=== PATIENT | female | born 1990 ===

== ENCOUNTER 2019-10-27 05:54 | Inpatient (IN) | payer OTHER ==
[2019-10-27] MEDS ORDERED: LACTATED RINGERS 1,000 ML ONE (06:57)
[2019-10-27] MEDS ORDERED: OXYTOCIN 20 UNIT/1000ML DRIP 40,000 MILLIUNITS/2,000 ML BAG IV ONE (06:58)
[2019-10-27] MEDS ORDERED: TERBUTALINE 1 MG/1 ML INJ SUB-Q PRN (07:01)
[2019-10-27] MEDS ORDERED: ePHEDrine SULFATE 50 MG/1 ML INJ IV PRN (07:01)
[2019-10-27] MEDS ORDERED: BUTORPHANOL 2 MG/1 ML INJ IV PRN (07:01)
[2019-10-27] MEDS ORDERED: TERBUTALINE 1 MG/1 ML INJ IVP PRN (07:01)
[2019-10-27] MEDS ORDERED: MINERAL OIL 30 ML ORAL LIQD PO PRN ×2 (07:01→08:01)
[2019-10-27] MEDS ORDERED: fentaNYL 100 MCG/2 ML INJ IV PRN (07:01)
[2019-10-27] MEDS ORDERED: ONDANSETRON 4 MG/2 ML INJ IV PRN (07:01)
[2019-10-27] MEDS ORDERED: LIDOCAINE (2%) 20 MG/1 ML VIAL 20 ML MDV INFILTRATI ONE (07:01)
[2019-10-27 07:23] LABS: Hematocrit 35.1 % (30.3-42.9); Hemoglobin 11.7 gm/dl (10.1-14.3); Mean Corpuscular HGB Conc 33 % (30-34); Mean Corpuscular Volume 81 fl (79-97); Platelet Count 252 K/mm3 (140-440); Red Blood Count 4.36 M/mm3 (3.65-5.03); Red Cell Distribution Width 14.4 % (13.2-15.2)
[2019-10-27] MEDS ORDERED: OXYTOCIN 10 UNIT/1 ML INJ IM ONE (07:46)
[2019-10-27] MEDS ORDERED: LACTATED RINGERS 1,000 ML IV SCH ×2 (08:00→09:00)
[2019-10-27] MEDS ORDERED: OXYTOCIN 20 UNIT/1000ML DRIP 20 UNITS/1,000 ML BAG IV SCH (08:00)
[2019-10-27] MEDS ORDERED: HYDROcodone/ACETAMINOPHEN 5-325 MG TAB PO PRN (08:04)
[2019-10-27] MEDS ORDERED: PROMETHAZINE 25 MG TAB PO PRN (08:04)
[2019-10-27] MEDS ORDERED: WITCH HAZEL/ GLYCERIN PAD TP PRN (08:04)
[2019-10-27] MEDS ORDERED: diphenhydrAMINE 25 MG CAP PO PRN (08:04)
[2019-10-27] MEDS ORDERED: LANOLIN/ZINC/DIMETHICONE (LANSINOH) 7 GM TP PRN (08:04)
--- NOTE | 2019-10-27 08:14 | History and Physical Report ---
History of Present Illness Date of examination: 10/27/19 Date of admission: 10/27/19 06:20 Chief complaint: Intense Labor Pains History of present illness: Early entry to care at [facility], course complicated by Anemia and Poor Weight Gain. Past History Past Medical History: no pertinent history Past Surgical History: no surgical history Family/Genetic History: none Social history: no significant social history, - Obstetrical History Expected Date of Delivery: 10/22/19 Actual Gestation: 40 Week(s) 5 Day(s) : 2 Para: 1 Hx # Term Pregnancies: 1 Number of Living Children: 1 #1 Gender: Male year: Birthweight: 3.629 kg Method of Delivery: Vaginal Gestational age at delivery: 40 Complications: none Medications and Allergies Allergies Allergy/AdvReac Type Severity Reaction Status Date / Time No Known Allergies Allergy Unverified 10/27/19 06:59 Active Meds: Active Medications Acetaminophen/Hydrocodone Bitart ([place] 5/325) 2 each PO Q6H PRN PRN Reason: Pain, Moderate (4-6) Butorphanol Tartrate (Stadol) 2 mg IV Q2H PRN PRN Reason: Pain , Severe (7-10) Diphenhydramine HCl (Benadryl) 25 mg PO Q6H PRN PRN Reason: Itching Ephedrine Sulfate (Ephedrine Sulfate) 10 mg IV Q2M PRN PRN Reason: Hypotension Fentanyl (Sublimaze) 100 mcg IV Q2H PRN PRN Reason: Labor Pain Oxytocin/Sodium Chloride (Pitocin/Ns 20 Unit/1000ml Drip) 20 units in 1,000 mls @ 125 mls/hr IV DIRECT ASIA Lactated Ringer's (Lactated Ringers) 1,000 mls @ 125 mls/hr IV DIRECT ASIA Lactated Ringer's (Lactated Ringers) 1,000 mls @ 125 mls/hr IV DIRECT ASIA Ibuprofen (Ibuprofen) 600 mg PO Q6H ASIA Mineral Oil (Mineral Oil) 30 ml PO QHS PRN PRN Reason: Constipation Last Admin: 10/27/19 07:20 Dose: 30 ml Documented by: Mineral Oil (Mineral Oil) 30 ml PO QHS PRN PRN Reason: Constipation Multi-Ingredient Ointment (Lansinoh) 1 applic TP PRN PRN PRN Reason: Sore Nipples Ondansetron HCl (Zofran) 4 mg IV Q8H PRN PRN Reason: Nausea And Vomiting Promethazine HCl (Phenergan) 25 mg PO Q6H PRN PRN Reason: Nausea And Vomiting Sodium Chloride (Sodium Chloride Flush Syringe 10 Ml) 10 ml IV PRN NR Terbutaline Sulfate (Brethine) 0.25 mg SUB-Q ONCE PRN PRN Reason: Hyperstimulation/Hypertonicity Terbutaline Sulfate (Brethine) 0.25 mg IVP ONCE PRN PRN Reason: Hyperstimulation/Hypertonicity Witch Lesia/Glycerin (Tucks Pad) 1 each TP PRN PRN PRN Reason: Hemorrhoid/cleansing/soothing Review of Systems All systems: negative - Vital Signs Vital signs: Vital Signs Pulse BP 87 102/69 10/27/19 06:58 10/27/19 06:58 Temp Pulse Resp BP Pulse Ox 82 108/52 10/27/19 07:41 10/27/19 07:41 - Physical Exam Breasts: Positive: normal Cardiovascular: Regular rate Lungs: Positive: Clear to auscultation, Normal air movement Abdomen: Positive: normal appearance, soft, normal bowel sounds Genitourinary (Female): Positive: normal external genitalia, normal perenium Vagina: Positive: normal moisture Uterus: Positive: enlarged Anus/Rectum: Positive: normal perianal skin - Obstetrical FHR: category 1 Uterine Contraction Monitor Mode: External Cervical Dilatation: 9 Cervical Effacement Percentage: 90 station: -2 Uterine Contraction Pattern: Regular Uterine Tone Measurement Phase: Resting Uterine Contraction Intensity: Moderate Results Result Diagrams: 10/27/19 06:45 Abnormal lab results 10/27/19 Range/Units 06:45 WBC 15.8 H (4.5-11.0) K/mm3 MCH 27 L (28-32) pg All other labs normal. Assessment and Plan A: IUP @ 40 5/7 Weeks Active Labor GBS Negative Category I Tracing P: Admit to L&D per Routine Orders Anticipate
--- NOTE | 2019-10-27 08:24 | Procedure Note ---
OB Delivery Note - Delivery Date of Delivery: 10/27/19 (0722) Surgeon: PHILLIP SAMUEL Estimated blood loss: 300cc - Vaginal Delivery presentation: vertex Delivery position: OA Intrapartum events: none Delivery induction: none Delivery monitor: external FHT, external uterine Route of delivery: Delivery placenta: spontaneous Delivery cord: 3 umbilical vessels Episiotomy: none Delivery laceration: 1st degree Delivery repair: vicryl Anesthesia: none Delivery comments: of a live 8'13 male over a 1st degree perineal laceration without pain control with Apgars of 8 and 9 at 0722 on 10/27/2019. Infant directly to maternal abd/chest, skin to skin contact. Spontaneous delivery of placenta complete and intact with [place] side presenting at 0724. Fundus is firm and midline located 5 below the U. Lochia is scant. Perineal laceration repaired with 2-[address]-1 under local 2% Lidocaine. Delayed cord clamping and cutting; Cord cut by the Father of the Baby. Cord blood collected; Placenta discarded. - A at 1 minute: 8 at 5 minutes: 9 Gender: Male (8'13)
[2019-10-27] MEDS: IBUPROFEN 600 MG TAB PO SCH ×3 (09:45→22:18)
[2019-10-27 19:07] LABS: Hematocrit 29.3 % (30.3-42.9)
[2019-10-28] MEDS: FERROUS SULFATE 325 MG TAB PO SCH (10:06)
[2019-10-28] MEDS: IBUPROFEN 600 MG TAB PO SCH ×2 (10:06→18:22)
--- NOTE | 2019-10-28 11:51 | Progress Note ---
Assessment and Plan - Patient Problems (1) Status post normal vaginal delivery Current Visit: Yes Status: Acute Plan to address problem: PPD 1 - stable Continue routine orders Discharge to home today Follow up at [facility] as needed or in 6 weeks for exam (2) Single live Current Visit: Yes Status: Acute (3) Anemia due to blood loss, acute Current Visit: Yes Status: Acute Plan to address problem: Asymptomatic Iron therapy initiated Subjective - Subjective Date of service: 10/28/19 Principal diagnosis: PPD #1, s/p Interval history: see H&P and OB Delivery Procedure Note Patient reports: appetite normal, voiding normally, pain well controlled, ambulating normally, no dizzy ambulation : doing well Objective - Vital Signs Latest vital signs: Vital Signs Temp Pulse Resp BP BP Pulse Ox 10/28/19 10:06 20 10/28/19 08:05 97.7 F 79 16 93/47 98 10/28/19 00:13 108/54 10/28/19 00:12 99.2 F 98 H 20 101/47 97 10/27/19 17:05 99.2 F 79 18 94/43 100 Intake and Output 10/27/19 10/28/19 10/28/19 23:59 07:59 15:59 Intake Total 240 120 Output Total 600 Balance -360 120 Intake: Oral 240 120 Output: Urine 600 Void 600 Other: Total, Intake Amount 120 120 Total, Output Amount 600 # Voids Void 2 - Exam Cardiovascular: Present: Regular rate Lungs: Present: Clear to auscultation Abdomen: Present: normal appearance, soft Vulva: both: laceration/episiotomy (well approximated) Uterus: Present: normal, firm, fundal height at umbilicus Extremities: Present: normal Comments: small lochia - Labs Labs: Abnormal lab results 10/27/19 Range/Units 18:52 Hgb 10.0 L (10.1-14.3) gm/dl Hct 29.3 L (30.3-42.9) %
--- NOTE | 2019-10-28 11:53 | Discharge Summary ---
Providers - Providers Date of Admission: 10/27/19 06:20 Date of discharge: 10/28/19 Attending physician: IVAN MCKEON MD Primary care physician: IVAN MCKEON MD Hospitalization Reason for admission: active labor, IUP at term Delivery: Episiotomy: none Laceration: 1st degree Other procedures: none complications: none Discharge diagnosis: IUP at term delivered baby: male Hospital course: Uncomplicated Condition at discharge: Stable Disposition: SD-01 TO HOME OR SELFCARE - Discharge Diagnoses (1) Status post normal vaginal delivery Status: Acute (2) Single live Status: Acute (3) Anemia due to blood loss, acute Status: Acute Comment: Asymptomatic Continue iron therapy Eat iron-rich foods Plan - Discharge Medications Prescriptions: Ferrous Sulfate [Feosol 325 MG tab] 325 mg PO QDAY #30 tablet Ibuprofen [Motrin 600 MG tab] 600 mg PO Q6H #30 tablet - Provider Discharge Summary Activity: routine, no sex for 6 weeks, no heavy lifting 4 weeks, no strenuous exercise Diet: routine Instructions: routine Additional instructions: [] Smoking cessation referral if applicable(refer to patient education folder for contact #) [] Refer to [facility]'s [facility] Booklet Call your doctor immediately for: * Fever > 100.5 * Heavy vaginal bleeding ( >1 pad per hour) * Severe persistent headache * Shortness of breath * Reddened, hot, painful area to leg or breast * Drainage or odor from incision. * Keep incision clean and dry at all times and follow doctor's instructions regarding bathing/showering - Follow up plan Follow up: IVAN MCKEON MD [Primary Care Provider] - 7 Days
[2019-10-29] MEDS: IBUPROFEN 600 MG TAB PO SCH ×4 (00:16→10:13)
[2019-10-29] MEDS: FERROUS SULFATE 325 MG TAB PO SCH (10:13)
[2019-10-29 13:19] VITALS: BP 101/58
== END 2019-10-29 14:18 | disposition home or self-care (01) | DRG 806 ==
LOC: TRG 05:54 → LD 06:20 → OB 10:18
PROVIDERS: ADMIT Obstetrics & Gynecology; ATTEND Obstetrics & Gynecology
PROC: 10E0XZZ Delivery of Products of Conception, External Approach (ICD-10-PCS; principal; 2019-10-27)
PROC: 0HQ9XZZ Repair Perineum Skin, External Approach (ICD-10-PCS; 2019-10-27)
DX: O99.02 Anemia complicating childbirth (principal); D62 Acute posthemorrhagic anemia; Z37.0 Single live birth; Z3A.40 40 weeks gestation of pregnancy; O70.0 First degree perineal laceration during delivery
CPT/HCPCS: 36415; 59025; 85014; 85018; 85027; 86850; 86900; 86901; 96360; 96361; 96372; G0378; J2590; J7120

== ENCOUNTER 2021-10-17 09:23 | Inpatient (IN) | payer SELFPAY ==
[2021-10-17] MEDS ORDERED: LACTATED RINGERS 1,000 ML ONE (09:49)
[2021-10-17] MEDS ORDERED: OXYTOCIN DRIP 30,000 MILLIUNITS/500 ML BAG IV ONE (09:50)
[2021-10-17] MEDS ORDERED: CARBOPROST TROMETHAMINE 250 MCG/1 ML INJ IM PRN (10:10)
[2021-10-17] MEDS ORDERED: LOPERAMIDE 2 MG CAP PO PRN (10:10)
[2021-10-17] MEDS ORDERED: OXYTOCIN 10 UNIT/1 ML INJ IM PRN (10:10)
[2021-10-17] MEDS ORDERED: METHYLERGONOVINE MALEATE 0.2 MG/ML VIAL IM PRN (10:10)
[2021-10-17] MEDS ORDERED: ePHEDrine SULFATE 50 MG/1 ML INJ IV PRN (10:10)
[2021-10-17] MEDS ORDERED: TERBUTALINE 1 MG/1 ML INJ SUB-Q PRN (10:10)
[2021-10-17] MEDS ORDERED: miSOPROStol 200 MCG TAB PR PRN (10:10)
[2021-10-17] MEDS ORDERED: LACTATED RINGERS 1,000 ML IV SCH (10:15)
[2021-10-17] MEDS ORDERED: fentaNYL 100 MCG/2 ML INJ IV PRN (10:17)
[2021-10-17] MEDS ORDERED: ONDANSETRON 4 MG/2 ML INJ IV PRN ×2 (10:17→12:08)
[2021-10-17] MEDS ORDERED: NalbUPHINE 10 MG/1 ML INJ IV PRN (10:17)
[2021-10-17] MEDS ORDERED: PROMETHAZINE 25 MG TAB PO PRN ×2 (10:17→12:08)
--- NOTE | 2021-10-17 10:35 | History and Physical Report ---
History of Present Illness Date of examination: 10/17/21 Date of admission: 10/17/21 09:23 Chief complaint: LOF and ctx History of present illness: at 41.0wks by LMP c/w U/S. care at [facility]. Pt c/o ctx and LOF; Denies vag bleed or headache. pt admits to movement. labs with Blood type O positive, neg antibody screen, HIV, HepBsAg and VDRL and GBS all negative. Rubella immune. pt desires IV pain med. Past History Past Medical History: no pertinent history Past Surgical History: no surgical history Social history: no significant social history - Obstetrical History Expected Date of Delivery: 10/10/21 Actual Gestation: 41 Week(s) 0 Day(s) : 3 Hx # Term Pregnancies: 2 Number of Living Children: 2 Medications and Allergies Allergies Allergy/AdvReac Type Severity Reaction Status Date / Time No Known Allergies Allergy Unverified 10/27/19 06:59 Home Medications Medication Instructions Recorded Confirmed Last Taken Type Ferrous Sulfate [Feosol 325 MG tab] 325 mg PO QDAY #30 tablet 10/28/19 Unknown Rx Ibuprofen [Motrin 600 MG tab] 600 mg PO Q6H #30 tablet 10/28/19 Unknown Rx Active Meds: Active Medications Acetaminophen (Acetaminophen 325 Mg Tab) 650 mg PO Q4H PRN PRN Reason: Pain, Mild (1-3) Carboprost Tromethamine (Carboprost Tromethamine 250 Mcg/1 Ml Inj) 250 mcg IM ONCE PRN PRN Reason: Uterine Bleeding Ephedrine Sulfate (Ephedrine Sulfate 50 Mg/1 Ml Inj) 10 mg IV Q2M PRN PRN Reason: Hypotension Fentanyl (Fentanyl 100 Mcg/2 Ml Inj) 100 mcg IV Q2H PRN PRN Reason: Pain,Severe (7-10) LABOR PAIN Oxytocin/Sodium Chloride (Pitocin/Ns 30 Unit/500ml) 30 units in 500 mls @ 2 mls/hr IV TITR ASIA; Protocol Lactated Ringer's (Lactated Ringers) 1,000 mls @ 125 mls/hr IV DIRECT ASIA Oxytocin/Sodium Chloride (Pitocin/Ns 30 Unit/500ml) 30 units in 500 mls @ 40 mls/hr IV TITR ASIA; Protocol Lidocaine (Lidocaine (2%) 20 Mg/1 Ml Vial 20 Ml Mdv) 20 ml INFILTRATI ONCE ONE Stop: 10/17/21 10:11 Loperamide HCl (Loperamide 2 Mg Cap) 2 mg PO ONCE PRN PRN Reason: give with Hemabate Methylergonovine Maleate (Methylergonovine Maleate 0.2 Mg/Ml Vial) 0.2 mg IM ONCE PRN PRN Reason: Uterine Bleeding Mineral Oil (Mineral Oil 30 Ml Oral Liqd) 30 ml PO QHS PRN PRN Reason: Constipation Misoprostol (Misoprostol 200 Mcg Tab) 800 mcg MD ONCE PRN PRN Reason: Uterine Bleeding Nalbuphine HCl (Nalbuphine 10 Mg/1 Ml Inj) 10 mg IV Q2H PRN PRN Reason: Pain, Moderate (4-6) Ondansetron HCl (Ondansetron 4 Mg/2 Ml Inj) 4 mg IV Q8H PRN PRN Reason: Nausea And Vomiting Oxytocin (Oxytocin 10 Unit/1 Ml Inj) 10 unit IM ONCE PRN PRN Reason: Uterine Bleeding Promethazine HCl (Promethazine 25 Mg Tab) 25 mg PO Q6H PRN PRN Reason: Nausea And Vomiting Terbutaline Sulfate (Terbutaline 1 Mg/1 Ml Inj) 0.25 mg SUB-Q ONCE PRN PRN Reason: Hyperstimulation/Hypertonicity Review of Systems All systems: negative (painful ctx and LOF) - Vital Signs Vital signs: Vital Signs Pulse Ox 99 10/17/21 10:00 Temp Pulse Resp BP Pulse Ox 99 10/17/21 10:00 - Physical Exam Breasts: Positive: deferred Cardiovascular: Regular rate Genitourinary (Female): Positive: normal external genitalia Uterus: Positive: enlarged (non-tender gravid) - Obstetrical FHR: category 1 Uterine Contraction Monitor Mode: External Cervical Dilatation: 9 Cervical Effacement Percentage: 10 station: -1 Uterine Contraction Pattern: Regular Uterine Contraction Intensity: Moderate Results Result Diagrams: 10/17/21 10:15 All other labs normal. Assessment and Plan Term in active labor, slow leak with bulging bag; GBS negative 1. Admit to labor and delivery 2. Will AROM forebag and same was clear 3. Will prepare for delivery Plan of care discussed with pt and her nurse. All questions encouraged and answered
[2021-10-17 10:42] LABS: Hematocrit 33.5 % (30.3-42.9); Hemoglobin 10.6 gm/dl (10.1-14.3); Mean Corpuscular HGB Conc 32 % (30-34); Mean Corpuscular Volume 78 fl (79-97); Platelet Count 208 K/mm3 (140-440); Red Cell Distribution Width 14.4 % (13.2-15.2)
[2021-10-17] MEDS ORDERED: OXYTOCIN DRIP 30 UNITS/500 ML BAG IV SCH ×3 (11:00→12:08)
[2021-10-17] MEDS ORDERED: MINERAL OIL 30 ML ORAL LIQD PO PRN (11:10)
[2021-10-17] MEDS ORDERED: LIDOCAINE (2%) 20 MG/1 ML VIAL 20 ML MDV INFILTRATI ONE (11:10)
--- NOTE | 2021-10-17 11:46 | Procedure Note ---
OB Delivery Note - Delivery Date of Delivery: 10/17/21 Surgeon: CRESCENCIO BABB Estimated blood loss: 300cc - Vaginal Delivery presentation: vertex Delivery position: OA Intrapartum events: precipitous labor- <3hr Delivery induction: none Delivery augmentation: rupture of membranes Delivery monitor: external FHT, external uterine Route of delivery: Delivery placenta: spontaneous Delivery cord: 3 umbilical vessels Episiotomy: none Delivery laceration: 2nd degree (perineal) Delivery repair: chromic Anesthesia: local Delivery comments: Precipitous uncomplicated of viable infant; Shoulder dystocia relieved with Rose position by nurses and suprapubic pressure by me. Placenta completely delivered spontaneously and complete with 3vessel cord. Sustained 2nd degree perineal laceration and same repaired with 2-0 chromic running locked suture and subcutaneously with the same suture. Bimanual exam done and no cervical lacerations noted. Uterus firm with IV pitocin. Mom and baby stable - A at 1 minute: 8 at 5 minutes: 9 Infant Gender: Female (wt 3950g; clear amniotic fluid)
[2021-10-17] MEDS ORDERED: MAGNESIUM HYDROXIDE (MOM) ORAL LIQD UDC PO PRN (12:08)
[2021-10-17] MEDS ORDERED: LANOLIN/ZINC/DIMETHICONE (LANSINOH) 7 GM TP PRN (12:08)
[2021-10-17] MEDS ORDERED: miSOPROStol 100 MCG TAB PR PRN (12:08)
[2021-10-17] MEDS ORDERED: PROMETHAZINE 25 MG RECT SUPP PR PRN (12:08)
[2021-10-17] MEDS ORDERED: diphenhydrAMINE 25 MG CAP PO PRN (12:08)
[2021-10-17] MEDS ORDERED: WITCH HAZEL/ GLYCERIN PAD TP PRN (12:08)
[2021-10-17] MEDS: ACETAMINOPHEN 325 MG TAB PO PRN (12:39)
[2021-10-17] MEDS: IBUPROFEN 600 MG TAB PO SCH ×2 (12:39→18:50)
[2021-10-17 23:39] LABS: Hemoglobin 9.6 gm/dl (10.1-14.3)
[2021-10-17] MEDS: DOCUSATE SODIUM 100 MG CAP PO SCH (23:41)
[2021-10-18] MEDS: IBUPROFEN 600 MG TAB PO SCH ×3 (00:24→15:57)
[2021-10-18] MEDS: PRENATAL VIT27-FE FUMARATE-FOLIC ACID VIT TAB PO SCH (09:10)
[2021-10-18] MEDS: DOCUSATE SODIUM 100 MG CAP PO SCH ×2 (09:11→21:50)
[2021-10-18] MEDS: ACETAMINOPHEN 325 MG TAB PO PRN (09:11)
[2021-10-18] MEDS ORDERED: LACTATED RINGERS 500 ML IV ONE (12:36)
--- NOTE | 2021-10-18 12:36 | Progress Note ---
Assessment and Plan A: day 1 S/P . Anemia. Lowish blood pressures. P: Supplement with iron. IV fluid bolus. Repeat CBC. Continue routine care. Subjective - Subjective Date of service: 10/18/21 Principal diagnosis: day 1 S/P Interval history: Patient reports small amount of lochia. Denies pain or dizziness or fatigue. Patient reports: appetite normal, voiding normally, pain well controlled, flatus, ambulating normally, no dizzy ambulation, no nauseated : doing well Objective - Vital Signs Latest vital signs: Vital Signs Temp Pulse Resp BP BP Pulse Ox Pulse Ox 10/18/21 09:48 99 10/18/21 09:11 16 10/18/21 08:21 98.7 F 72 18 109/52 97 10/18/21 00:26 98.7 F 78 20 98/45 99 10/18/21 00:24 20 10/17/21 21:12 99.5 F 75 20 93/44 96 10/17/21 20:15 98 10/17/21 19:50 20 10/17/21 15:40 98.2 F 89 18 117/85 97 10/17/21 14:10 99.7 F H 78 18 96/46 97 97 10/17/21 13:24 79 97/52 10/17/21 13:23 79 98 10/17/21 13:18 72 89/46 99 10/17/21 13:13 88 98 10/17/21 13:08 76 99 10/17/21 13:03 65 99 10/17/21 13:02 74 90/51 10/17/21 12:58 74 100 10/17/21 12:53 72 99 10/17/21 12:48 69 94/55 100 10/17/21 12:43 74 100 10/17/21 12:38 68 99 10/17/21 12:33 72 94/53 100 Intake and Output 10/17/21 10/18/21 10/18/21 23:59 07:59 15:59 Intake Total 240 360 480 Output Total 900 Balance -660 360 480 Intake: Oral 240 480 Intake, Free Water 360 Output: Urine 900 Void 900 Other: Total, Intake Amount 240 240 Total, Output Amount 900 # Voids Void 2 1 - Exam Cardiovascular: Present: Regular rate, No murmurs Lungs: Present: Clear to auscultation Abdomen: Present: normal appearance, soft, normal bowel sounds. Absent: distention, tenderness, guarding, rigidity Uterus: Present: normal, firm, fundal height below umbilicus. Absent: bogginess, tenderness Extremities: Present: edema (mild bilateral pedal edema). Absent: tenderness - Labs Labs: Abnormal lab results 10/17/21 Range/Units 23:30 Hgb 9.6 L (10.1-14.3) gm/dl Hct 30.0 L (30.3-42.9) %
[2021-10-18] MEDS: FERROUS SULFATE 325 MG TAB PO SCH (17:53)
[2021-10-18 18:43] LABS: Basophils # (Auto) 0.1 K/mm3 (0.0-0.1); Basophils % (Auto) 0.8 % (0.0-1.8); Eosinophils # (Auto) 0.1 K/mm3 (0.0-0.4); Eosinophils % (Auto) 1.2 % (0.0-4.3); Lymphocytes # (Auto) 2.2 K/mm3 (1.2-5.4); Lymphocytes % (Auto) 22.4 % (13.4-35.0); Mean Corpuscular HGB Conc 30 % (30-34); Mean Corpuscular Volume 79 fl (79-97); Platelet Count 243 K/mm3 (140-440); Red Blood Count 3.84 M/mm3 (3.65-5.03); Red Cell Distribution Width 14.4 % (13.2-15.2)
[2021-10-18 18:48] LABS: Hematocrit 30.4 % (30.3-42.9)
[2021-10-18] MEDS: oxyCODONE /ACETAMINOPHEN 5-325MG TAB PO PRN (21:50)
[2021-10-19] MEDS: oxyCODONE /ACETAMINOPHEN 5-325MG TAB PO PRN (02:50)
[2021-10-19] MEDS ORDERED: LACTATED RINGERS 1,000 ML IV ONE (07:06)
[2021-10-19] MEDS ORDERED: LACTATED RINGERS 500 ML IV ONE (07:08)
[2021-10-19] MEDS: FERROUS SULFATE 325 MG TAB PO SCH (08:45)
[2021-10-19] MEDS: DOCUSATE SODIUM 100 MG CAP PO SCH (08:45)
[2021-10-19] MEDS: PRENATAL VIT27-FE FUMARATE-FOLIC ACID VIT TAB PO SCH (08:46)
--- NOTE | 2021-10-19 11:46 | Progress Note ---
Assessment and Plan - Patient Problems (1) Status post normal vaginal delivery Current Visit: No Status: Acute Plan to address problem: Stable. Subjective - Subjective Date of service: 10/19/21 Principal diagnosis: day 2 S/P Interval history: Reported no complaints and ambulating and functioning just fine with her BPs. Patient was also walked around the floor under supervision of her nurse without any difficulties. Patient reports: appetite normal, voiding normally, pain well controlled, ambulating normally : doing well Objective - Vital Signs Latest vital signs: Vital Signs Temp Pulse Resp BP BP Pulse Ox Pulse Ox 10/19/21 08:40 98 10/19/21 08:02 98.1 F 64 18 94/47 97 10/19/21 02:50 18 10/19/21 01:37 72 88/46 10/19/21 01:36 97.8 F 74 18 88/35 97 10/18/21 21:50 18 10/18/21 20:21 99 10/18/21 15:57 16 10/18/21 15:36 97.9 F 76 18 110/49 96 Intake and Output 10/18/21 10/19/21 10/19/21 23:59 07:59 15:59 Intake Total 600 120 240 Balance 600 120 240 Intake: Oral 600 120 240 Other: Total, Intake Amount 240 120 240 # Voids Void 1 1 1 - Exam Breasts: Present: deferred Lungs: Present: Normal air movement Abdomen: Present: normal appearance Uterus: Present: normal, firm Extremities: Present: normal - Labs Labs: Abnormal lab results 10/18/21 Range/Units 18:30 Hgb 9.0 L (10.1-14.3) gm/dl MCH 23 L (28-32) pg [place] % (Auto) 10.0 H (0.0-7.3) % [place] # (Auto) 1.0 H (0.0-0.8) K/mm3
--- NOTE | 2021-10-19 11:50 | Discharge Summary ---
Providers - Providers Date of Admission: 10/17/21 10:10 Date of discharge: 10/19/21 Attending physician: CRESCENCIO BABB Primary care physician: ANNI KYLE MD Hospitalization Reason for admission: active labor Delivery: Episiotomy: none Laceration: 2nd degree Other procedures: none complications: none Condition at discharge: Good Disposition: 30 STILL A PATIENT - Discharge Diagnoses (1) Status post normal vaginal delivery Status: Acute Plan - Provider Discharge Summary Activity: routine, no sex for 6 weeks, no heavy lifting 4 weeks, no strenuous exercise, other (Report any syncopal episodes promptly to both MD and ER) Diet: routine Instructions: routine Additional instructions: [] Smoking cessation referral if applicable(refer to patient education folder for contact #) [] Refer to [facility]'s [facility] Booklet Call your doctor immediately for: * Fever > 100.5 * Heavy vaginal bleeding ( >1 pad per hour) * Severe persistent headache * Shortness of breath * Reddened, hot, painful area to leg or breast * Drainage or odor from incision. * Keep incision clean and dry at all times and follow doctor's instructions regarding bathing/showering - Follow up plan Follow up: PRIMARY CAREMD [Primary Care Provider] - 7 Days
[2021-10-19 15:22] VITALS: BP 104/59
== END 2021-10-19 15:30 | disposition home or self-care (01) | DRG 807 ==
LOC: LD 09:23 → UNDOADMIN 09:23 → LD 10:10 → OB 14:09
PROVIDERS: ADMIT Obstetrics & Gynecology; ATTEND Obstetrics & Gynecology
PROC: 10E0XZZ Delivery of Products of Conception, External Approach (ICD-10-PCS; principal; 2021-10-17)
PROC: 0KQM0ZZ Repair Perineum Muscle, Open Approach (ICD-10-PCS; 2021-10-17)
DX: O62.3 Precipitate labor (principal); Z37.0 Single live birth; Z3A.41 41 weeks gestation of pregnancy; Z20.822 Contact with and (suspected) exposure to COVID-19; O70.1 Second degree perineal laceration during delivery; O90.81 Anemia of the puerperium
CPT/HCPCS: 36415; 59025; 85014; 85018; 85025; 85027; 86592; 86850; 86900; 86901; 96360; 96365; 96366; G0378; J3490; J7120; U0003